=== PATIENT | female | born 1930 | race Caucasian/White ===

== ENCOUNTER 2017-01-09 08:20 | Emergency (ER) | payer MEDICARE ==
[~2017-01-09 08:20] MED LIST: AMLO5TAB96; ASPI81CH5; ATOR10; CALC500T30; IRBE1TAB39; META400; PANT20; ROSI1TAB23; SYNT25TA; VITA500T10; [UNRECOGNIZED DRUG - OTHER]
[2017-01-09 08:22] VITALS: BP 224/96; PULSE 79; RESP 16; TEMP 98.2; O2SAT 96
[2017-01-09 08:43] VITALS: BP 198/98; PULSE 72; RESP 18; O2SAT 97
--- NOTE | 2017-01-09 08:44 | PD ---
HPI Chief Complaint: Nosebleed Time Seen by Provider: 08:40 Travel History International Travel<30 days: No (11) Contact w/Intl Traveler<30days: No Traveled to known affect area: No History of Present Illness HPI This 86-year-old female had an episode of nosebleed this morning. This started around 7:00 when she was up. It was heavy bleeding from the right nostril. She was able to get it stopped by putting a cool rag on her face. He then started bleeding again about 10 minutes later. She again was able to get it to stop. She has not had trouble with nosebleeds before. She does have a history of hypertension and takes Exforge which is a combination of amlodipine and valsartan. She has not yet had her medication today. She does take a baby aspirin a day she is not on any blood thinners PFSH Past Medical History Hx Anticoagulant Therapy: Yes (ASPIRIN) Diminished Hearing: No ?: Not Past Surgical History Abdominal Surgery: Yes (PARTIAL sbo;PARTIAL COLECTOMY) Appendectomy: Yes Genitourinary Surgery: Yes (LEFT OVARY) Hysterectomy: Yes Thoracic Surgery: Yes (RIGHT IB REMOVED) Social History Alcohol Use: No Tobacco Use: Yes (1/2 PPD) Allergies-Medications (Allergen,Severity, Reaction): Coded Allergies: Sulfa (Sulfonamide Antibiotics) (Unverified Allergy, Mild, 01/09/17) acetaminophen (Unverified Allergy, Mild, 01/09/17) clarithromycin (Unverified Allergy, Mild, 01/09/17) hydrocodone (Unverified Allergy, Mild, 01/09/17) ibuprofen (Unverified Allergy, Mild, 01/09/17) indomethacin (Unverified Allergy, Mild, 01/09/17) morphine (Unverified Allergy, Mild, 01/09/17) naproxen (Unverified Allergy, Mild, 01/09/17) oxaprozin (Unverified Allergy, Mild, 01/09/17) propoxyphene (Unverified Allergy, Mild, 01/09/17) Reported Meds & Prescriptions Reported Meds & Active Scripts Active Reported Jose Children's Aspirin (Aspirin) 81 Mg Chew Calcium Oyster Shell (Calcium Carbonate) 500 Mg Tab Vitamin C (Ascorbic Acid) 500 Mg Tab Synthroid (Levothyroxine Sodium) 25 Mcg Tab Avapro (Irbesartan) 300 Mg Tab Lipitor (Atorvastatin Calcium) 10 Mg Tab Skelaxin (Metaxalone) 400 Mg Tab Avandia (Rosiglitazone Maleate) 2 Mg Tab Humulin U (Insulin Human Ultralente) 100 Units/Ml Inj Norvasc (Amlodipine Besylate) 5 Mg Tab Protonix (Pantoprazole Sodium) 20 Mg Tabdr Review of Systems General / Constitutional: No: Fever, Chills Eyes: No: Diploplia, Blurred Vision HENT: No: Headaches Cardiovascular: No: Chest Pain or Discomfort, Palpitations Respiratory: No: Cough Gastrointestinal: No: Vomiting, Diarrhea Genitourinary: No: Urgency Musculoskeletal: Positive: Myalgias, Arthralgias Endocrine: No: Heat Intolerance Hematologic/Lymphatic: No: Easy Bruising Physical Exam Narrative GENERAL blood pressure is elevated. Well-developed female SKIN: Focused skin assessment warm/dry. HEAD: Atraumatic. Normocephalic. EYES: Pupils equal and round. No scleral icterus. No injection or drainage. ENT: No nasal bleeding or discharge. There is some erythema of the mucosa. There is no bleeding Mucous membranes pink and moist. NECK: Trachea midline. No JVD. CARDIOVASCULAR: Regular rate and rhythm. No murmur appreciated. RESPIRATORY: No accessory muscle use. Clear to auscultation. Breath sounds equal bilaterally. GASTROINTESTINAL: Abdomen soft, non-tender, nondistended. Hepatic and splenic margins not palpable. MUSCULOSKELETAL: No obvious deformities. No clubbing. No cyanosis. No edema. NEUROLOGICAL: Awake and alert. No obvious cranial nerve deficits. Motor grossly within normal limits. Normal speech. PSYCHIATRIC: Appropriate mood and affect; insight and judgment normal. Data Data Last Documented VS Vital Signs Date Time Temp Pulse Resp B/P (MAP) Pulse Ox O2 Delivery O2 Flow Rate FiO2 01/09/17 08:22 98.2 79 16 224/96 (138) 96 MDM Medical Decision Making Medical Screen Exam Complete: Yes Emergency Medical Condition: Yes Medical Record Reviewed: Yes Differential Diagnosis Differential includes epistaxis, hypertension, Narrative Course Patient's bleeding at this time is controlled. Her blood pressure is elevated but she has not had her daily medicine and she says she usually is well controlled with her medicine. I will recommend that she take her medication when she gets home. I have instructed her that if the bleeding recurs she should apply direct pressure to the sides of the nose and then return if it does not stop within 5 minutes Diagnosis Primary Impression: Epistaxis Additional Impression: Hypertension Qualified Codes: I10 - Essential (primary) hypertension Disposition: 01 DISCHARGE HOME Condition: Stable Abdoulaye Price MD Jan 09, 2017 08:44
[2017-01-09] MEDS ORDERED: ASPI81CH CHEW (08:52)
[2017-01-09] MEDS ORDERED: PANT40TA3 PO (08:52)
[2017-01-09] MEDS ORDERED: SYNT25TA PO (08:52)
[2017-01-09] MEDS ORDERED: COMB0.2S EACH EYE (08:53)
[2017-01-09] MEDS ORDERED: INSU100V3 SQ (08:53)
[2017-01-09] MEDS ORDERED: EXFO10TA2 PO (08:53)
[2017-01-09] MEDS ORDERED: LUMI0.01 EACH EYE (08:53)
== END 2017-01-09 09:03 | disposition home or self-care (01) ==
LOC: PHED 08:20
DX: R04.0 Epistaxis (principal); I10 Essential (primary) hypertension; Z79.82 Long term (current) use of aspirin
CPT/HCPCS: 99281

== ENCOUNTER 2017-03-09 10:20 | Emergency (ER) | payer MEDICARE ==
[~2017-03-09] VITALS: Ht 149.9 cm; Wt 66.0 kg
[~2017-03-09 10:20] MED LIST changes: -AMLO5TAB96; +ASPI81CH CHEW; -ASPI81CH5; -ATOR10; -CALC500T30; +COMB0.2S EACH EYE; +EXFO10TA2 PO; +INSU100V3 SQ; -IRBE1TAB39; +LUMI0.01 EACH EYE; -META400; -PANT20; +PANT40TA3 PO; -ROSI1TAB23; -SYNT25TA; +SYNT25TA PO; -VITA500T10; -[UNRECOGNIZED DRUG - OTHER]
[2017-03-09 10:21] VITALS: BP 198/79; PULSE 69; RESP 18; TEMP 98.5; O2SAT 99
[2017-03-09 10:50] VITALS: BP 212/85; PULSE 64; RESP 18; O2SAT 98
[2017-03-09] MEDS ORDERED: META1TAB19 PO (10:54)
--- NOTE | 2017-03-09 10:54 | PD ---
HPI Chief Complaint: Fall Time Seen by Provider: 10:51 Travel History International Travel<30 days: No Contact w/Intl Traveler<30days: No Traveled to known affect area: No History of Present Illness HPI 86-year-old female patient with history of multiple medical issues, presents to the ER today because she tripped on a speed bump in the parking lot and fell face first, had no loss of consciousness but is complaining of area around the eye hurting. She has obvious ecchymosis to both orbits. She also hit her right knee. She denies any chest pains, shortness of breath, or any other injuries. Modifying Factors: None Associated Signs & Symptoms: Trip and fall, visual injuries, right knee injury Risk Factors: None PFSH Past Medical History Hx Anticoagulant Therapy: Yes (ASPIRIN) Anxiety: Yes Diabetes: Yes Patient Takes Glucophage: No Diminished Hearing: No Gastrointestinal Disorders: Yes (SBO,ABDOMINAL ANEURYSMS ) GERD: Yes Hypertension: Yes Respiratory: Yes (PULMONARY EMBOLISM ) Immunizations Current: Yes (2005) Thyroid Disease: Yes Tetanus Vaccination: > 5 Years Influenza Vaccination: Yes ?: Not Menopausal: Yes Past Surgical History Abdominal Surgery: Yes (PARTIAL COLECTOMY) Appendectomy: Yes Genitourinary Surgery: Yes (LEFT OVARY) Hysterectomy: Yes Thoracic Surgery: Yes Social History Alcohol Use: No Tobacco Use: Yes (/2 PPD) Allergies-Medications (Allergen,Severity, Reaction): Coded Allergies: Sulfa (Sulfonamide Antibiotics) (Unverified Allergy, Mild, 03/09/17) acetaminophen (Unverified Allergy, Mild, 03/09/17) baclofen (Verified Allergy, Mild, RASH , 03/09/17) clarithromycin (Unverified Allergy, Mild, 03/09/17) hydrocodone (Unverified Allergy, Mild, 03/09/17) ibuprofen (Unverified Allergy, Mild, 03/09/17) indomethacin (Unverified Allergy, Mild, 03/09/17) morphine (Unverified Allergy, Mild, 03/09/17) naproxen (Unverified Allergy, Mild, 03/09/17) oxaprozin (Unverified Allergy, Mild, 03/09/17) propoxyphene (Unverified Allergy, Mild, 03/09/17) Reported Meds & Prescriptions Reported Meds & Active Scripts Active Reported Metaxalone 800 Mg Tab 800 Mg PO DAILY Exforge (Amlodipine-Valsartan) 10-320 Mg Tab 1 Tab PO DAILY Lumigan Opth Drops (Bimatoprost) 0.01% Soln 1 Drop EACH EYE HS Combigan Opth Drops (Brimonidine-Timolol Opth Drops) 0.2-0.5% Soln 1 Drop EACH EYE Q12HR Humulin N Inj (Insulin Human NPH) 1,000 Unit/10 Ml Vial 10 Units SQ HS Synthroid (Levothyroxine Sodium) 25 Mcg Tab 25 Mcg PO DAILY Pantoprazole (Pantoprazole Sodium) 40 Mg Tab 40 Mg PO DAILY Aspirin 81 Mg Chew 81 Mg CHEW DAILY Review of Systems Except as stated in HPI: all other systems reviewed are Neg Physical Exam Narrative GENERAL: Well-developed pleasant elderly white female patient currently in mild distress. Awake and oriented 3. SKIN: Focused skin assessment warm/dry. HEAD: There is notable ecchymosis to both lower eyelids, mildly tender to palpation around the right orbital rim. Normocephalic. EYES: Pupils equal and round. No scleral icterus. No injection or drainage. ENT: No nasal bleeding or discharge. Mucous membranes pink and moist. NECK: Trachea midline. No JVD. CARDIOVASCULAR: Regular rate and rhythm. No murmur appreciated. RESPIRATORY: No accessory muscle use. Clear to auscultation. Breath sounds equal bilaterally. GASTROINTESTINAL: Abdomen soft, non-tender, nondistended. Hepatic and splenic margins not palpable. MUSCULOSKELETAL: No obvious deformities. No clubbing. No cyanosis. No edema. Pelvis: Stable, mildly tender to palpation around the right groin area. EXTREMITIES: No clubbing, cyanosis, or edema. Mildly tender to palpation of the right knee, nontender range of motion. NEUROLOGICAL: Awake and alert. No obvious cranial nerve deficits. Motor grossly within normal limits. Normal speech. PSYCHIATRIC: Appropriate mood and affect; insight and judgment normal. Data Data Last Documented VS Vital Signs Date Time Temp Pulse Resp B/P (MAP) Pulse Ox O2 Delivery O2 Flow Rate FiO2 03/09/17 10:56 Room Air 03/09/17 10:50 64 18 212/85 (127) 98 03/09/17 10:[address] Brain W/O Iv Contrast(Rout) (03/09/17 10:51) Ct Cerv Spine W/O Contrast (03/09/17 10:51) Ct Facial Bones W/O Iv Cont (03/09/17 10:51) Femur (Ap & Lat/2vws) (03/09/17 10:51) Knee, Ltd (1 Or 2vws) (03/09/17 10:51) MDM Medical Decision Making Medical Screen Exam Complete: Yes Emergency Medical Condition: Yes Medical Record Reviewed: Yes Interpretation(s) Last 24 hours Impressions Knee X-Ray 03/09/17 1051 Signed Impressions: Service Date/Time: Thursday, March 09, 2017 11:09 - CONCLUSION: Degenerative changes as above. No fracture or subluxation of the right knee. Boo Mota MD Head CT 03/09/17 1051 Signed Impressions: Service Date/Time: Thursday, March 09, 2017 11:07 - CONCLUSION: No bleed or other acute intracranial abnormality. Right frontal scalp hematoma. Boo Mota MD Femur X-Ray 03/09/17 1051 Signed Impressions: Service Date/Time: Thursday, March 09, 2017 11:07 - CONCLUSION: Intact right femur. Boo Mota MD Differential Diagnosis Trip and fall, knee injury, head injury: Rule out fractures versus contusions versus intracranial injuries Narrative Course X-rays did not show any signs of near hip injuries. She does have CAT scan finding of a minimally displaced nasal fracture. No signs of intracranial injuries. X-rays did not show any obvious fractures although she has a mild grade 1 anterolisthesis likely to be degenerative considering patient's age. She has no focal neurological deficits and has no tenderness on palpation of the posterior C-spine. She is able to flex and extend her neck without pain. At this point, my plan would be to release the patient with follow-up to primary care doctor and ENT for nasal fracture. Return for any worsening in pain or new symptoms as needed. The plan has discussed with the patient and she states understanding. Diagnosis Primary Impression: Facial contusion Additional Impression: Nasal bone fracture Med/Other Pt SpecificInfo: Prescription(s) given Scripts Tramadol (Tramadol) 50 Mg Tab 50 MG PO Q8H Y for PAIN, #15 TAB 0 Refills Prov: Shayan Winter MD 03/09/17 Disposition: 01 DISCHARGE HOME Condition: Stable Soontharothai,Rewadee MD Mar 09, 2017 10:54
--- NOTE | 2017-03-09 11:22 | RADRPT ---
EXAM DATE/TIME: 03/09/2017 11:07 [facility] COMPARISON: No previous studies available for comparison. INDICATIONS : Fell today in parking lot of [employer] MEDICAL HISTORY : None. SURGICAL HISTORY : None. ENCOUNTER: Initial ACUITY: 1 day PAIN SCORE: Non-responsive. LOCATION: Right femur FINDINGS: Two view examination of the right femur demonstrates no evidence of fracture or dislocation. Bony mi neralization is normal. The soft tissue structures are intact. CONCLUSION: Intact right femur. Boo Mota MD on March 09, 2017 at 11:20 Board Certified Radiologist. This report was verified electronically.
--- NOTE | 2017-03-09 11:22 | RADRPT ---
EXAM DATE/TIME: 03/09/2017 11:07 [facility] COMPARISON: No previous studies available for comparison. INDICATIONS : Fell today in parking lot of [employer] MEDICAL HISTORY : None. SURGICAL HISTORY : None. ENCOUNTER: Initial ACUITY: 1 day PAIN SCORE: Non-responsive. LOCATION: Right femur FINDINGS: Two view examination of the right femur demonstrates no evidence of fracture or dislocation. Bony mi neralization is normal. The soft tissue structures are intact. CONCLUSION: Intact right femur. Boo Mota MD on March 09, 2017 at 11:20 Board Certified Radiologist. This report was verified electronically.
--- NOTE | 2017-03-09 11:22 | RADRPT ---
EXAM DATE/TIME: 03/09/2017 11:07 [facility] COMPARISON: No previous studies available for comparison. INDICATIONS : Fell today in parking lot of [employer] MEDICAL HISTORY : None. SURGICAL HISTORY : None. ENCOUNTER: Initial ACUITY: 1 day PAIN SCORE: Non-responsive. LOCATION: Right femur FINDINGS: Two view examination of the right femur demonstrates no evidence of fracture or dislocation. Bony mi neralization is normal. The soft tissue structures are intact. CONCLUSION: Intact right femur. Boo Mota MD on March 09, 2017 at 11:20 Board Certified Radiologist. This report was verified electronically.
--- NOTE | 2017-03-09 11:24 | RADRPT ---
EXAM DATE/TIME: 03/09/2017 11:09 [facility] COMPARISON: No previous studies available for comparison. INDICATIONS : Fell today in parking lot at [employer] MEDICAL HISTORY : None. SURGICAL HISTORY : None. ENCOUNTER: Initial ACUITY: 1 day PAIN SCORE: Non-responsive. LOCATION: Right knee FINDINGS: No fracture or subluxation is seen in the right knee. There is medial compartment predominant osteoar thritis. Chronic enthesopathic changes are seen of distal quadriceps. No perceptible joint effusion. CONCLUSION: Degenerative changes as above. No fracture or subluxation of the right knee. Boo Mota MD on March 09, 2017 at 11:21 Board Certified Radiologist. This report was verified electronically.
--- NOTE | 2017-03-09 11:24 | RADRPT ---
EXAM DATE/TIME: 03/09/2017 11:09 [facility] COMPARISON: No previous studies available for comparison. INDICATIONS : Fell today in parking lot at [employer] MEDICAL HISTORY : None. SURGICAL HISTORY : None. ENCOUNTER: Initial ACUITY: 1 day PAIN SCORE: Non-responsive. LOCATION: Right knee FINDINGS: No fracture or subluxation is seen in the right knee. There is medial compartment predominant osteoar thritis. Chronic enthesopathic changes are seen of distal quadriceps. No perceptible joint effusion. CONCLUSION: Degenerative changes as above. No fracture or subluxation of the right knee. Boo Mota MD on March 09, 2017 at 11:21 Board Certified Radiologist. This report was verified electronically.
--- NOTE | 2017-03-09 11:47 | RADRPT ---
EXAM DATE/TIME: 03/09/2017 11:07 [facility] COMPARISON: No previous studies available for comparison. INDICATIONS : Tripped over speed bump, fell this am. Hit face and right knee RADIATION DOSE: 56.41 CTDIvol (mGy) MEDICAL HISTORY : Hypertension. Diabetes mellitus type 2. Abdominal aneruysm SURGICAL HISTORY : Hysterectomy. Appendectomy.Colectomy ENCOUNTER: Initial ACUITY: 1 day PAIN SCALE: 5/10 LOCATION: cranial TECHNIQUE: Multiple contiguous axial images were obtained of the head. Using automated exposure control and adj ustment of the mA and/or kV according to patient size, radiation dose was kept as low as reasonably a chievable to obtain optimal diagnostic quality images. DICOM format image data is available electro nically for review and comparison. FINDINGS: CEREBRUM: The ventricles are normal for age. No evidence of midline shift, mass lesion, hemorrhage or acute in farction. No extra-axial fluid collections are seen. POSTERIOR FOSSA: The cerebellum and brainstem are intact. The 4th ventricle is midline. The cerebellopontine angle i s unremarkable. EXTRACRANIAL: There is a right frontal scalp hematoma. SKULL: The calvaria is intact. No evidence of skull fracture. CONCLUSION: No bleed or other acute intracranial abnormality. Right frontal scalp hematoma. Boo Mota MD on March 09, 2017 at 11:44 Board Certified Radiologist. This report was verified electronically.
--- NOTE | 2017-03-09 11:50 | RADRPT ---
EXAM DATE/TIME: 03/09/2017 11:11 [facility] COMPARISON: No previous studies available for comparison. INDICATIONS : Tripped over a speed bump and fell this am. Hit face and right knee RADIATION DOSE: 26.36 CTDIvol (mGy) MEDICAL HISTORY : Hypertension. Diabetes mellitus type 2. Abdominal aneursym SURGICAL HISTORY : Hysterectomy. Appendectomy.Partial colectomy ENCOUNTER: Initial ACUITY: 1 day PAIN SCORE: 6/10 LOCATION: facial TECHNIQUE: Volumetric scanning of the facial bones was performed. Using automated exposure control and adjustme nt of the mA and/or kV according to patient size, radiation dose was kept as low as reasonably achiev able to obtain optimal diagnostic quality images. DICOM format image data is available electronicall y for review and comparison. FINDINGS: ORBITS: The orbital and infraorbital osseous structures are intact. The retroconal structures have a normal configuration. No radiopaque foreign bodies are seen. NASAL BONE: Mildly comminuted bilateral nasal arch fracture noted and there is slight leftward deviation. ZYGOMATIC ARCHES: Symmetric without evidence of fracture. SINUSES: No blood. Scattered mucus retention cysts are seen of both maxillary air cells. NASAL CAVITY: The nasal septum is intact and midline. The lacrimal ducts are intact. SOFT TISSUES: Perinasal, right periorbital and right frontal contusion/hematoma. INTRACRANIAL: No intracranial air seen. CRIBIFORM PLATE: Grossly intact. CONCLUSION: Large facial contusion and minimally displaced/leftward deviated fracturing of the nose. Orbits and o ther facial bones are intact. Boo Mota MD on March 09, 2017 at 11:46 Board Certified Radiologist. This report was verified electronically.
[2017-03-09 11:55] VITALS: BP 210/83; PULSE 66; RESP 23; O2SAT 97
--- NOTE | 2017-03-09 12:08 | RADRPT ---
EXAM DATE/TIME: 03/09/2017 11:09 [facility] COMPARISON: No previous studies available for comparison. INDICATIONS : Tripped over speed bump, hit face and right knee RADIATION DOSE: 22.55 CTDIvol (mGy) MEDICAL HISTORY : Hypertension. Diabetes mellitus type 2. Abdominal aneursym SURGICAL HISTORY : Hysterectomy. Appendectomy.Partial colectomy ENCOUNTER: Initial ACUITY: 1 day PAIN SCALE: 5/10 LOCATION: neck TECHNIQUE: Volumetric scanning of the cervical spine was performed. Multiplanar reconstructions in the sagittal, coronal and oblique axial planes were performed. Using automated exposure control and adjustment o f the mA and/or kV according to patient size, radiation dose was kept as low as reasonably achievable to obtain optimal diagnostic quality images. DICOM format image data is available electronically f or review and comparison. FINDINGS: Postsurgical features of intradiscal and anterior plate and screw fixation at C4-5. Vertebral body he ights are maintained. Osseous structures are intact without evidence for acute bony fracture. Dens is intact. Minimal 3 mm grade 1 anterolisthesis of C2 on C3. Multilevel degenerative spondylosis most p rominently at C3-5 with prominent osteophyte formation. There is bulky eccentric right posterior oste ophytes at C4-5 with effacement of the anterior right lateral recess. There is a normal C1-2 relation ship. Facets are normally aligned with multilevel facet arthropathy.There is no significant preverteb ral soft tissue hematoma. No significant cervical adenopathy or gross mass. The thyroid appears unrem arkable. Dense carotid artery calcifications on the left. Visualized lung apices are clear without pn eumothorax. CONCLUSION: 1. Mild, 2 mm, grade 1 anterolisthesis of C2 on C3, likely degenerative. Flexion-extension views may be obtained if there is clinical concern regarding ligamentous instability. 2. No acute cervical fracture. 3. Postsurgical features of intradiscal and anterior plate and screw fixation at C4-5 with multilevel degenerative spondylosis, as above. Aki Menendez MD on March 09, 2017 at 11:56 Board Certified Radiologist. This report was verified electronically.
[2017-03-09] MEDS ORDERED: TRAM50TA PO (12:14)
== END 2017-03-09 12:50 | disposition home or self-care (01) ==
LOC: NEPC 10:20
DX: S02.2XXA Fracture of nasal bones, initial encounter for closed fracture (principal); S00.03XA Contusion of scalp, initial encounter; E11.9 Type 2 diabetes mellitus without complications; K56.609 Unspecified intestinal obstruction, unspecified as to partial versus complete obstruction; K21.9 Gastro-esophageal reflux disease without esophagitis; I10 Essential (primary) hypertension; E07.9 Disorder of thyroid, unspecified; W01.0XXA Fall on same level from slipping, tripping and stumbling without subsequent striking against object, initial encounter; Y92.481 Parking lot as the place of occurrence of the external cause
CPT/HCPCS: 70450; 70486; 72125; 73552; 73560; 99285